=== PATIENT | male | born 1995 | race Two or more races ===

== ENCOUNTER 2018-11-11 10:26 | Outpatient (CLI) | payer OTHER | END 2018-11-11 10:39 | disposition home or self-care (01) | LOC: RAD 501 10:26 | DX: S92.135A Nondisplaced fracture of posterior process of left talus, initial encounter for closed fracture (principal) ==

== ENCOUNTER 2021-10-23 11:28 | Emergency (ER) | payer OTHER ==
[~2021-10-23] VITALS: Ht 177.8 cm; Wt 74.8 kg
== END 2021-10-23 14:39 | disposition home or self-care (01) ==
LOC: ER 11:28
DX: I86.1 Scrotal varices (principal)